=== PATIENT | female | born 1980 | race Caucasian/White ===

== ENCOUNTER 2022-11-02 04:41 | Emergency (ER) | payer BC ==
[~2022-11-02] VITALS: Ht 152.4 cm; Wt 64.0 kg
[2022-11-02 05:47] LABS: BASOPHILS % 0.4 % (0.0-2.0); EOSINOPHILS % 0.5 % (0.0-5.0); HEMOGLOBIN. 11.8 g/dL (12.0-16.0); LYMPHOCYTES % 16.7 % (20.0-50.0); MEAN CORPUSCULAR HGB CONC 33.7 g/dL (31.0-37.0); MEAN CORPUSCULAR VOLUME 91.9 fL (81.0-99.0); MEAN PLATELET VOLUME 9.7 fl (7.4-10.4); MONOCYTES % 5.5 % (2.0-8.0); NEUTROPHILS % 76.9 % (40.0-76.0); PLATELET 212 x1000/uL (130-400); RED BLOOD CELL COUNT 3.81 mill/uL (4.2-5.4); RED CELL DISTRIBUTION WIDTH 13.6 % (11.6-14.6); WHITE BLOOD COUNT 9.3 x1000/uL (4.5-11.0)
[2022-11-02 05:53] LABS: CHLORIDE 109 mEq/L (98-107); INDEX HEMOLYSI 1 (1-3); INDEX ICTERIC 1 (1-4); INDEX LIPEMIC 1 (1-3); POTASSIUM 4.2 mEq/L (3.5-5.1); SODIUM 137 mEq/L (136-145)
[2022-11-02 06:03] LABS: ALANINE AMINOTRANSFERASE 15 IU/L (13-61); ALBUMIN 3.8 g/dL (3.4-5.0); ASPARTATE AMINOTRANSFERASE 13 IU/L (15-37); BILIRUBIN TOTAL 0.4 mg/dL (0.1-1.0); CALCIUM 8.7 mg/dL (8.5-10.1); CARBON DIOXIDE 23 mEq/L (21-32); CREATININE 0.7 mg/dL (0.6-1.3); GLUCOSE 140 mg/dL (70-105); PROTEIN TOTAL 7.5 g/dL (6.0-8.3); UREA NITROGEN BLOOD 22 mg/dL (7-21)
[2022-11-02] MEDS ORDERED: ONDANSETRON HCL 4MG/2ML INJ IV STA (06:18)
[2022-11-02] MEDS ORDERED: FAMOTIDINE 20MG/2ML VIAL IV STA (06:18)
[2022-11-02] MEDS ORDERED: MAGNESIUM/ALUMINUM HYDROXIDE/SIMETHICONE 30ML UDC PO STA (06:18)
[2022-11-02 06:20] VITALS: TEMP 98.1
[2022-11-02] MEDS ORDERED: SODIUM CHLORIDE 0.9% 1,000 ML IV ONE (06:30)
[2022-11-02 06:50] LABS: TROPONIN I HIGH SENSITIVITY 6 ng/L (<54)
[2022-11-02 07:17] LABS: CLARITY URINE CLEAR (CLEAR); COLOR URINE YELLOW (YELLOW); GLUCOSE URINE NEGATIVE (NEGATIVE); KETONES URINE NEGATIVE (NEGATIVE); OCCULT BLOOD URINE NEGATIVE (NEGATIVE); PH URINE 5.5 (4.5-8.0); PROTEIN URINE TRACE (NEGATIVE); SPECIFIC GRAVITY URINE 1.031 (1.005-1.030)
[2022-11-02 07:18] LABS: LEUKOCYTE ESTERASE URINE NEGATIVE (NEGATIVE); NITRITE URINE NEGATIVE (NEGATIVE); UROBILINOGEN URINE 0.2 E.U./dL (0.2-1.0)
[2022-11-02 07:19] LABS: HCG SCREEN NEGATIVE
[2022-11-02 07:35] LABS: BACTERIA URINE 1+; SQUAMOUS EPITHELIAL CELL URINE 2+ /lpf (RARE/1+)
[2022-11-02 07:36] LABS: WBC URINE 0-2 /hpf (0-2)
[2022-11-02 07:37] LABS: RBC URINE NONE SEEN /hpf (0-2)
[2022-11-02] MEDS ORDERED: KETOROLAC 15MG/ML VIAL IV ONE (10:15)
[2022-11-02 11:36] LABS: TROPONIN I HIGH SENSITIVITY 4 ng/L (<54)
[2022-11-02] MEDS ORDERED: MAG355OR21 MT (14:05)
[2022-11-02] MEDS ORDERED: FAMO-135 MT (14:05)
[2022-11-02 14:18] VITALS: BP 101/54; PULSE 65; RESP 14
== END 2022-11-02 14:53 | disposition home or self-care (01) ==
LOC: ER 04:41
DX: K80.20 Calculus of gallbladder without cholecystitis without obstruction (principal); Z98.890 Other specified postprocedural states
CPT/HCPCS: 80053; 81003; 81025; 84703; 83690; 85025; 84484; 36415; 71045; 76705; 93005; 96361; 96374; 96375; 99285; J3490; J1885; J2405; J7030; Z7610 ×2

== ENCOUNTER 2024-12-27 19:38 | Emergency (ER) | payer MEDICAID ==
[~2024-12-27] VITALS: Ht 152.4 cm; Wt 61.0 kg
[~2024-12-27 19:38] MED LIST: FAMO-135 MT; MAG355OR21 MT
[2024-12-27 19:53] VITALS: O2SAT 100
[2024-12-28] MEDS: KETOROLAC 30MG/ML VIAL IM NR (01:38)
[2024-12-28] MEDS: KETOROLAC 30MG/ML VIAL IM ONE (01:38)
[2024-12-28] MEDS ORDERED: IBUP-1455 MT (01:59)
[2024-12-28] MEDS ORDERED: CYCL10TA21 MT (01:59)
[2024-12-28 03:12] VITALS: BP 108/46; PULSE 63; RESP 16; TEMP 36.7; O2SAT 100
== END 2024-12-28 03:12 | disposition home or self-care (01) ==
LOC: ER 19:38
DX: M25.561 Pain in right knee (principal)
CPT/HCPCS: 99283; 29505; 73562; 96372; J1885